=== PATIENT | male | born 1965 | race Caucasian/White ===

== ENCOUNTER 2016-06-26 16:51 | Emergency (ER) | payer MEDICAID, OTHER ==
[~2016-06-26] VITALS: Ht 167.6 cm; Wt 106.5 kg
[2016-06-26 17:06] VITALS: Ht 167.6 cm; Wt 106.5 kg
[2016-06-26] MEDS ORDERED: D-ME473S18 PO (17:23)
[2016-06-26] MEDS ORDERED: AZIT250T94 PO (17:23)
--- NOTE | 2016-06-26 18:26 | ERD ---
ER Documentation Chief Complaint Date/Time DATE: 06/26/16 TIME: 18:25 Chief Complaint Complains of a cough colds and flu symptoms HPI This is a 51-year-old male presents to the ER with a productive cough for the last 2 weeks. Patient states that he feels ear congestion and sore throat. He denies any fevers or chills. He denies any chest pain or shortness of breath. He does not have any history of asthma. ROS 12 point review of systems was done, all negative except per HPI. Medications Home Meds Active Scripts Dextromethorphan Hb-Promethazine Hcl (Promethazine DM Syrup) 473 Ml Syrup, 10 ML PO Q6H Y for COUGH, #4 OZ Prov:ALEX DAVILA Marie 06/26/16 Azithromycin* (Zithromax*) 250 Mg Tablet, 250 MG PO .ZPACK DIRECTED, #6 TAB TAKE 500 MG (2 TABS) THE FIRST DAY THEN 250 MG (1 TAB) DAYS 2-5 Prov:ALEX DAVILA Marie 06/26/16 Physical Exam Vitals Vital Signs Date Time Temp Pulse Resp B/P Pulse Ox O2 Delivery O2 Flow Rate FiO2 06/26/16 17:06 97.4 68 20 140/77 95 Physical Exam GENERAL: The patient is well-developed, well-nourished, in no acute distress. NECK: Cervical spine is non tender with no step off. Supple, no nuchal rigidity HEENT: Atraumatic. Pupils equal, round and reactive to light. Extraocular muscles are grossly intact. Conjunctivae pink, no discharge. Bilateral tympanic membranes are clear with no evidence of erythema, effusion or dulling of the light reflex. Tonsilar erythema with no exudates or uvular deviation. Clear rhinorrhea. RESPIRATORY: Clear to auscultation bilaterally. There are no rales, wheezes or rhonchi. HEART: Regular rate and rhythm. No murmurs, clicks, rubs or gallops. EXTREMITIES: No clubbing or cyanosis. Full range of motion. Grossly neurovascularly intact. NEUROLOGIC: Alert and oriented. Cranial nerves II through XII are intact. SKIN: There is no rash. The skin is warm and dry. Procedures/MDM Differential diagnosis includes but is not limited to; Viral URI, allergic rhinitis, bronchitis, pertussis,pneumonia. This is likely bronchitis. Clinical suspicion for pneumonia is low as patient appears well, is not hypoxic or in any respiratory distress. Additionally, patients physical examination is benign. Plan was discussed with patient they understand and agree. Patient needs to follow up with PCP in 1-2 days or return to ER sooner if symptoms worsen. Departure Diagnosis: Primary Impression: Bronchitis Condition: Stable Patient Instructions: What Is Bronchitis? Additional Instructions: Llame al doctor MAANA y og lillian EUSEBIA PARA DENTRO DE 1-2 TRUONG.Dgale a la secretaria que nosotros le instruimos hacer esta eusebia.Avise o llame si santos condicin se empeora antes de la eusebia. Regresa aqui si peor o no mejor. ALEX DAVILA Jun 26, 2016 18:26
== END 2016-06-26 19:34 | disposition home or self-care (01) ==
LOC: E/R 16:51
DX: J20.9 Acute bronchitis, unspecified (principal)
CPT/HCPCS: 99284

== ENCOUNTER 2017-05-22 20:24 | Emergency (ER) | END 2017-05-22 23:21 | disposition home or self-care (01) ==

== ENCOUNTER 2018-03-08 20:45 | Emergency (ER) | END 2018-03-08 23:21 | disposition home or self-care (01) ==

== ENCOUNTER 2018-08-25 20:34 | Emergency (ER) | payer MEDICAID ==
[~2018-08-25] VITALS: Wt 107.2 kg
[~2018-08-25 20:34] MED LIST: AZIT250T PO; D-ME473S18 PO; HC30CR25 TOP; MUPI22OI2 TOP; NAPR-985 PO
[2018-08-26] MEDS ORDERED: KETOROLAC 30 MG INJ IM STA (00:06)
--- NOTE | 2018-08-26 02:28 | ERD ---
ER Documentation Chief Complaint Chief Complaint sukhdev feet pain for several weeks; denies injury/dm HPI History of Present Illness: Patient coming in today with complaint of bilateral feet pain that has been present for several weeks, worsening over the past week. Patient reports increased pain with walking, inability to tandem for prolonged periods. At home pharmacological/nonpharmacological treatment for symptoms: Denies Denies social concerns; Denies recent foreign travel ROS All systems reviewed and are negative except as per history of present illness. Medications Home Meds Active Scripts Hydrocortisone* Topical (Hydrocortisone* Topical) 2.5%-28.3 Gm Cream..g., 1 APPLIC TOP BID, #1 TUB Prov:RADHA HOPKINS PA-C 03/08/18 Naproxen* (Naprosyn*) 500 Mg Tablet, 500 MG PO BID PRN for PAIN AND/OR INFLAMMATION, #30 TAB Prov:RADHA HOPKINS PA-C 03/08/18 Mupirocin* (Bactroban*) 2% -22 Gram Oint...g., 1 APPLIC TOP BID for 7 Days, EA Prov:DIOR CORTEZ PA-C 05/22/17 Dextromethorphan Hb-Promethazine Hcl (Promethazine DM Syrup) 473 Ml Syrup, 10 ML PO Q6H PRN for COUGH, #4 OZ Prov:ALEX DAVILA 06/26/16 Azithromycin* (Zithromax*) 250 Mg Tablet, 250 MG PO .ZPACK DIRECTED, #6 TAB TAKE 500 MG (2 TABS) THE FIRST DAY THEN 250 MG (1 TAB) DAYS 2-5 Prov:ALEX DAVILA 06/26/16 Allergies Allergies: Coded Allergies: No Known Allergy (Unverified , 05/22/17) PMhx/Soc History of Surgery: Yes (mandible) Hx Cardiac Disorders: Yes (htn) Hx Miscellaneous Medical Probl: Yes (HLD) Hx Alcohol Use: No (quit) Hx Substance Use: No Hx Tobacco Use: No Smoking Status: Former smoker FmHx Family History: No diabetes, No coronary disease Physical Exam Vitals Vital Signs Date Temp Pulse Resp B/P (MAP) Pulse Ox O2 O2 Flow FiO2 Time Delivery Rate 08/25/18 97.7 52 20 160/74 97 20:51 (102) Physical Exam Const: No acute distress Head: Atraumatic Eyes: Normal Conjunctiva ENT: Normal External Ears, Nose and Mouth. Neck: Full range of motion. No meningismus. Resp: Clear to auscultation bilaterally Cardio: Regular rate and rhythm, no murmurs Abd: Soft, non tender, non distended. Normal bowel sounds Skin: No petechiae or rashes Back: No midline or flank tenderness Ext: No cyanosis, or edema. Tenderness to palpation over bilateral heels of foot, no erythema, no fluctuance. Neur: Awake and alert Psych: Normal Mood and Affect Results 24 hrs Current Medications Medications Dose Sig/Stevan Start Time Status Last (Trade) Ordered Route PRN Stop Time Admin Dose Reason Admin Ketorolac 30 mg ONCE STAT 08/26/18 DC 08/26/18 Tromethamine IM 00:06 01:19 (Toradol) 08/26/18 00:07 Procedures/MDM ED course includes a thorough examination and history. Medications: Ketorolac for pain/inflammation Imaging: Bilateral feet x-rays Labs: --- Low suspicion for life-threatening medical emergency. Suspicion for orthopedic emergency that requires hospitalization or immediate surgery. Otherwise healthy patient presenting with constellation of symptoms likely representing uncomplicated calcaneal spur as characterized by history, physical exam findings, radiologic findings. No acute fractures or dislocations. Calcaneal spurs noted to bilateral x-ray. No respiratory distress, otherwise relatively well appearing and nontoxic. Patient educated on diagnoses, prescriptions, follow-up care, return precautions. Strict return precautions given for worsening condition; questions answered discharge. Disposition for discharge with followup in 2 days with PCP/clinic. Departure Diagnosis: Primary Impression: Foot pain, bilateral Additional Impression: Heel spur Laterality: unspecified laterality Qualified Codes: M77.30 - Calcaneal spur, unspecified foot Condition: Stable Patient Instructions: Heel Spur Referrals: COMMUNITY CLINICS YOU HAVE RECEIVED A MEDICAL SCREENING EXAM AND THE RESULTS INDICATE THAT YOU DO NOT HAVE A CONDITION THAT REQUIRES URGENT TREATMENT IN THE EMERGENCY DEPARTMENT. FURTHER EVALUATION AND TREATMENT OF YOUR CONDITION CAN WAIT UNTIL YOU ARE SEEN IN YOUR DOCTORS OFFICE WITHIN THE NEXT 1-2 DAYS. IT IS YOUR RESPONSIBILITY TO MAKE AN APPOINTMENT FOR FOLOW-UP CARE. IF YOU HAVE A PRIMARY DOCTOR --you should call your primary doctor and schedule an appointment IF YOU DO NOT HAVE A PRIMARY DOCTOR YOU CAN CALL OUR PHYSICIAN REFERRAL HOTLINE AT IF YOU CAN NOT AFFORD TO SEE A PHYSICIAN YOU CAN CHOSE FROM THE FOLLOWING [facility] CLIN[facility] [address] [facility] [address] [facility] [address] [facility] [address] [facility] [address] [facility] [facility]. [facility]. [address] [facility]. [facility] YOU HAVE RECEIVED A MEDICAL SCREENING EXAM AND THE RESULTS INDICATE THAT YOU DO NOT HAVE A CONDITION THAT REQUIRES URGENT TREATMENT IN THE EMERGENCY DEPARTMENT. FURTHER EVALUATION AND TREATMENT OF YOUR CONDITION CAN WAIT UNTIL YOU ARE SEEN IN YOUR DOCTORS OFFICE WITHIN THE NEXT 1-2 DAYS. IT IS YOUR RESPONSIBILITY TO MAKE AN APPOINTMENT FOR FOLOW-UP CARE. IF YOU HAVE A PRIMARY DOCTOR --you should call your primary doctor and schedule and appointment IF YOU DO NOT HAVE A PRIMARY DOCTOR YOU CAN CALL OUR PHYSICIAN REFERRAL HOTLINE AT . IF YOU CAN NOT AFFORD TO SEE A PHYSICIAN YOU CAN CHOSE FROM THE FOLLOWING [facility] INSTITUTIONS: [facility] [address] [place] [address] [facility] [address] [place] [address] [facility] [address] [place] [address] Additional Instructions: Thank you very much for allowing us to participate in your care. Your health and safety is our top priority at [facility]. It is important to read all discharge instructions and education provided in your discharge packet. Call your primary care doctor TOMORROW for an appointment during the next 2-4 days and bring all the information and medications prescribed. At this time, you will also need to discuss with your primary care doctor your elevated blood pressure readings to determine if you will need to be started on blood pressure medication. Have prescriptions filled and follow precisely the directions on the label. Naproxen is a NSAID medication; take this medication for pain If the symptoms get worse and your provider is unavailable, return to the Emergency Department immediately. CAN BELL NP Aug 26, 2018 02:28
[2018-08-26 02:35] VITALS: BP 143/84; PULSE 55; RESP 18
== END 2018-08-26 02:44 | disposition home or self-care (01) ==
LOC: FTE 20:34
DX: M77.31 Calcaneal spur, right foot (principal); M77.32 Calcaneal spur, left foot; I10 Essential (primary) hypertension; Z87.891 Personal history of nicotine dependence
CPT/HCPCS: 73630; 96372; J1885; Z7502

== ENCOUNTER → 2019-01-22 | Emergency (ER) | payer MEDICAID ==
[~2019-01-22] VITALS: Ht 165.1 cm; Wt 104.2 kg
[~2019-01-22] MED LIST changes: +CEPH-443 PO; +CEPHALEXIN 500 MG CAP PO ONE; +HYDR25TA6 PO; +IBUP-1542 PO; +IBUPROFEN 600 MG TAB PO ONE; +SULF1TAB31 PO; +TRIMETHOPRIM/SULFAMETHOX (DS) TAB PO ONE
[2019-01-22 09:53] VITALS: BP 165/79; PULSE 58; RESP 18; Ht 165.1 cm; Wt 104.2 kg
== END | disposition home or self-care (01) ==
LOC: FTE 09:40
DX: L02.215 Cutaneous abscess of perineum (principal); I10 Essential (primary) hypertension; F17.210 Nicotine dependence, cigarettes, uncomplicated
CPT/HCPCS: Z7610 ×3; 99283